=== PATIENT | male | born 1950 | race Caucasian/White ===

== ENCOUNTER 2016-09-22 00:08 | Day surgery (SDC) | payer MEDICARE, OTHER ==
[~2016-09-22] VITALS: Ht 185.4 cm; Wt 99.0 kg
[~2016-09-22 00:08] MED LIST: CARV3.122 PO; CHOL100043 PO; LACT1CAP65 PO; LENA2.5C PO; LISI-571 PO; LORA1TAB PO; METH5TAB3 PO; OMEP20CA11 PO; POLY17PO6 PO; SENN-133 PO; SEVE800T10 PO; TORS100T3 PO; VALA500T2 PO; VITA1TAB17 PO; ZLP10T PO; [UNRECOGNIZED DRUG - OTHER] PO
[2016-09-22] MEDS ORDERED: MAGNESIUM SULFATE IV ONE (00:09)
[2016-09-22] MEDS ORDERED: Propofol 10,000 mCg/mL 20 mL Inj ONE (00:09)
[2016-09-22] MEDS ORDERED: Lactated Ringer's 1,000 ML IV SCH ×2 (05:00→10:20)
[2016-09-22 09:30] VITALS: BP 126/70; PULSE 86; RESP 17; O2SAT 97
[2016-09-22 09:58] LABS: BASOPHILS % (AUTO) 0 % (0-3); Mean Corpuscular Volume 103.7 fL (81-100)
[2016-09-22] MEDS ORDERED: Heparin 1,000 Units/mL 2 mL Inj INJ SCH (10:00)
[2016-09-22] MEDS ORDERED: fentaNYL-PF 50 mCg/mL 2 mL Inj IVPUSH PRN (10:20)
[2016-09-22] MEDS ORDERED: HYDROmorphone 1 mg/mL Inj IVPUSH PRN (10:20)
[2016-09-22] MEDS ORDERED: Phenylephrine 10,000 mCg/mL Inj IVPUSH PRN (10:20)
[2016-09-22] MEDS ORDERED: Lactated Ringer's 500 ML IV PRN (10:20)
[2016-09-22] MEDS ORDERED: Ondansetron 2 mg/mL 2 mL Inj IVPUSH PRN (10:20)
[2016-09-22] MEDS ORDERED: Dexamethasone 4 mg/mL Inj IVPUSH PRN (10:20)
[2016-09-22] MEDS ORDERED: EPHEDrine Sulfate 50 mg/mL Inj IVPUSH PRN (10:20)
[2016-09-22] MEDS ORDERED: MetoCLOpramide 5 mg/mL 2 mL Inj IVPUSH PRN (10:20)
--- NOTE | 2016-09-22 10:20 | PCM.HPANE ---
Patient Data Surgeon Admitting Provider: Attending Provider:Brennan Calixto MD Primary Care Physician:Juliano Rolle MD Other Provider:Cindy Avilesingham Anesthesia Reason for Visit Multiple Myeloma Not Having Achieved Remission Ht/WT & BMI Height (Feet): 6 Height (Inches): 1.00 Weight (Kilograms): 99.000 Body Mass Index 28.93 Allergies Coded Allergies: esomeprazole mag (Verified Adverse Reaction, Intermediate, nausea/vomiting , 04/23/13) Past Anesthesia History Anesthesia History: Denies:: Abnormal Airway, Anesthesia Reactions, Difficult Intubation Diabetes History Hx Diabetes?: No MRSA MRSA: No Medications Hypertension Medication: Yes Home Meds Incl Beta Nerissa: Yes Reported Medications Lactobacillus Acidophilus (Probiotic)1 Each Capsule1 Each PO DAILY 08/15/16 Polyethylene Glycol 3350 (Miralax)17 Gm Powd.pack17 Gm PO DAILY 06/30/16 Sennosides (Senna)8.6 Mg Tablet8.6 Mg PO PRN For Constipation 06/30/16 Lisinopril 5 Mg Tablet5 Mg PO DAILY Ref 0 05/26/16 Torsemide 100 Mg Ovxyvi73-950 Mg PO DAILY Ref 0 04/21/16 Sevelamer HCl (Renagel)800 Mg Tablet1,600 Mg PO TIDWM 04/21/16 Lenalidomide (Revlimid)2.5 Mg Capsule2.5 Mg PO DAILY 09/15/16 ON HOLD 12/03/15 Carvedilol 3.125 Mg Tablet3.125 Mg PO BID Ref 0 08/31/15 Lorazepam 1 Mg Tablet1 Mg PO BID PRN For Insomnia Ref 0 08/27/15 [Granistreon] No Conflict Check1 Mg PO am NAUSEA 08/11/15 Zolpidem (Ambien)10 Mg Wlztnw77 Mg PO HS PRN For Insomnia Ref 0 08/11/15 Methadone 5 Mg Tablet2.5 Mg PO BID #30 TABLET Ref 0 08/11/15 Omeprazole 20 Mg Capsule.dr20 Mg PO BID Ref 0 08/11/15 Cholecalciferol (Vitamin D3) (Vitamin D)1,000 Unit Tablet1,000 Unit PO DAILY Ref 0 08/11/15 Vitamin B Complex 1 Each Tablet1 Each PO DAILY 10/16/14 Valacyclovir HCl (Valtrex)500 Mg Cietcs369 Mg PO DAILY TO TAKE X12 MOS [employer] TRANSPLANT 06/23/15 10/09/14 History History of ENT Problems?: No HEENT History: Positive for:: Hearing Problem Denies:: Abnormal Airway Cataracts Difficult Intubation Dysphagia Denture Type: None Teeth Condition: Within Normal Limits Hx of Heart Problems?: No Cardiovascular History: Denies:: Atrial Fibrillation Cardiac Surgery Chest Pain Congestive Heart Failure Edema Heart Murmur Hypertension Irregular Heartbeat Pacemaker Thrombophlebitis Valvular Heart Disease Hx of Respiratory Problem?: Yes Respiratory History: Denies:: Asthma COPD Chest Surgery Cough Dyspnea Emphysema Hemoptysis Pneumonia Tuberculosis Hx Neurologic Problems?: Yes Neurological History: Positive for:: Headaches Denies:: CVA Dementia Dizziness Parkinson's Disease Seizures Hx of GI Problems?: Yes Gastrointestinal History: Positive for:: Gastroesphageal Reflux Gastrointestinal Bleeding Heartburn Hiatal Hernia Denies:: Cirrhosis Diverticulitis Rectal Bleeding Hx of Problems?: Yes Genitourinary History: Positive for:: HX of Hemodialysis (T,R,S) Urinary Tract Infection Denies:: Kidney Stones Male Hx: Denies:: Prostate Problems Hx Musculoskeletal Problems?: Yes Musculoskeletal History: Positive for:: Back Injury Denies:: Joint Replacement Hx of Psycho/Social Problems?: No Psycho Social History: Denies:: Anxiety Hx Depression Hx Surgeries?: Yes ("Perineal nerve surgery" has numbness in Rt. foot. ) Hx Any Other Health Problems?: Yes Other History: Positive for:: Cancer (Multiple Myeloma (back)) Hospitalization Denies:: Endocrine Disease Thyroid Disease History Blood Transfusions: Positive for:: Accept Blood Products? Blood Transfusions Denies:: Blood Transfuse Reaction Hx Diabetes: No Hx Alcohol Use: NoHx Substance Use: No Smoking Status: Never Smoker Have You Smoked inLast 12 mo: No Stop/Bang Treated for Sleep Apnea?: Yes Do You Have a CPAP Machine?: Yes KAYE Risk Assessment: High Risk, =/>3 Yes Risk Assessment Category Category 1A: Patient has history of documented sleep apnea, and HAS NOT received any narcotic, sedative or anesthesia administration during this stay. Category 1B: Patient has history of documented sleep apnea, and HAS received any narcotic , sedative or anesthesia administration during this stay Category 2: Patient has SUSPECTED Obstructive Sleep Apnea, and HAS received any narcotic , sedative or anesthesia administration during this stay. Category 3: Patient has SUSPECTED Obstructive Sleep Apnea and HAS NOT received narcotic, sedative or anesthesia administration during this stay. Category 4: Outpatient in Procedural Areas with known sleep apnea or who screen positive for High Risk via the STOP/BANG questionnaire. Exam Exam Vital Signs Vital Signs Date Time Temp Pulse Resp B/P Pulse Ox O2 Delivery O2 Flow Rate FiO2 09/22/16 09:30 37.0 86 17 126/70 97 Room Air General Appearance: Oriented X3 HEENT/AIRWAY: MP 2 Lungs: Normal Air Movement Heart: Regular Rate/Rhythm Meds/Labs/Diagnostics Labs Test 09/22/16 09:47 Plan Impression Patient chart reviewed, patient interviewed and anesthestic plan with risks, benefits, and alternatives discussed, and informed consent obtained. ASA Physical Status: ASA2 Mod Systemic Disease Anesthetic Plan: GA, MAC Bene/Risks/Altern/Consents: Yes HP Complete Prior to Induction: Yes Branden Maldonado MD Sep 22, 2016 10:20
[2016-09-22 10:39] LABS: EOSINOPHILS % (AUTO) 0 % (0-5); MONOCYTES % (AUTO) 3 % (4-12); NEUTROPHILS % (AUTO) 7 % (40-74); Platelet Count 16 bil/L (150-400)
[2016-09-22 11:00] VITALS: BP 122/78; PULSE 85; RESP 17; O2SAT 97
[2016-09-22] MEDS ORDERED: NEPHVIT PO (11:00)
[2016-09-27] MEDS ORDERED: LORA0.5T PO (15:33)
--- NOTE | 2016-10-02 17:03 | CCS NOTE ---
[facility] [address] [address] MEDICAL ONCOLOGY OFFICE NOTE PATIENT: KRISTIN BELLAMY : 1950 MR#: [id number] DATE: 09/22/2016 JOB ID: [id number] DATE: 09/22/2016 PROCEDURE: Bone marrow aspiration and biopsy under conscious sedation in outpatient surgery. INDICATIONS: History of multiple myeloma status post autologous stem-cell transplant, now with severe thrombocytopenia. Rule out development of marrow aplasia or secondary malignancy. PROCEDURE IN DETAIL: After informed consent was obtained, the patient was placed under conscious sedation and the right posterior iliac crest was prepped with Chlorhexidine. Following this, an instillation of 7 cc of 2% lidocaine was used for local anesthesia. Following this, a 3 mm nikia was made in the skin with a #11 blade. A 14-gauge [place] sternal needle was used to obtain a 5 cc aspirate for Plascencia Giemsa stain, flow cytometry, FISH, and cytogenetics. Following this, an 11-gauge Jamshidi needle was used to obtain a 5-7 mm core biopsy. COMPLICATIONS: None; followup will be in 2-5 days.
[2016-10-05] MEDS ORDERED: GRAN1TAB2 PO (12:03)
== END 2016-09-22 23:59 | disposition home or self-care (01) ==
LOC: SOUO 00:08
DX: C90.00 Multiple myeloma not having achieved remission (principal); Z94.84 Stem cells transplant status; D69.6 Thrombocytopenia, unspecified
CPT/HCPCS: 36415; 85025; J1644; J3475

== ENCOUNTER 2016-09-24 07:27 | Day surgery (SDC) | payer MEDICARE, OTHER ==
[~2016-09-24] VITALS: Ht 185.4 cm; Wt 100.9 kg
[~2016-09-24 07:27] MED LIST changes: -LENA2.5C PO; +NEPHVIT PO; -POLY17PO6 PO; -SENN-133 PO; -VITA1TAB17 PO
[2016-09-24 10:00] VITALS: BP 138/86; PULSE 92; RESP 18; O2SAT 98
[2016-09-24 10:48] LABS: BASOPHILS % (AUTO) 0 % (0-3); EOSINOPHILS % (AUTO) 0.7 % (0-5); MONOCYTES % (AUTO) 5.6 % (4-12); Mean Corpuscular Hemoglobin 32.8 pg (27.0-35.0); Mean Corpuscular Volume 102.8 fL (81-100); NEUTROPHILS % (AUTO) 2.4 % (40-74)
[2016-09-24 10:51] LABS: Platelet Count 6 bil/L (150-400)
[2016-09-24] MEDS ORDERED: 0.9% Sodium Chloride 250 ML IV SCH (11:10)
[2016-09-24 11:49] VITALS: BP 127/86; PULSE 89; RESP 18
[2016-09-24] MEDS ORDERED: HepLOK Flush 100 unit/mL 5 mL Inj ONE (12:25)
[2016-09-24 12:49] VITALS: BP 140/87; PULSE 90; RESP 18
--- NOTE | 2016-09-24 13:00 | NUR ---
PLTS=6 (<20); 1 pk plts infused as indicated/ordered pt tolerated well; vss escorted on/off unit with family to follow-up with onc center
[2016-09-27] MEDS ORDERED: LORA0.5T PO (15:33)
[2016-10-05] MEDS ORDERED: GRAN1TAB2 PO (12:03)
== END 2016-09-24 23:59 | disposition home or self-care (01) ==
LOC: MOCO 07:27
DX: C90.00 Multiple myeloma not having achieved remission (principal)
CPT/HCPCS: 36415; 36430; 85025; J1642; J7050; P9034

== ENCOUNTER 2017-02-01 16:30 | Emergency (ER) | payer MEDICARE, OTHER ==
[~2017-02-01] VITALS: Ht 185.4 cm; Wt 90.0 kg
[~2017-02-01 16:30] MED LIST changes: +GRAN1TAB2 PO; +LORA0.5T PO; -LORA1TAB PO; -[UNRECOGNIZED DRUG - OTHER] PO
[2017-02-01 16:41] VITALS: BP 146/82; RESP 16; O2SAT 96
--- NOTE | 2017-02-01 16:50 | ED.REPORT ---
HPI-General Illness Date of Service Feb 01, 2017 ED Provider: Himanshu Tyler MD Patient is a 66 year old male with a history of acute myeloid leukemia who presents to the ED stating that it feels as though there is something in the back of his throat since this morning. The patient states that it feels like a large "fleshy thing" in the back of his throat that makes it difficulty to breath and causes him to gag when he gulps. He reports that it does not feel like mucous, it feels like "a balloon that is filled with something". Patient denies throat pain, cough, fever, or abdominal pain. Patient's last chemo treatment was a month ago. Nursing Notes Stated Complaint: SOMETHING IN THROAT, HARD TO BREATH Chief Complaint: ENT & Mouth Nursing Notes Reviewed: Yes Allergies: Coded Allergies: esomeprazole mag (Verified Adverse Reaction, Intermediate, nausea/vomiting , 04/23/13) Scheduled Carvedilol (Carvedilol) 3.125 Mg Tablet 3.125 MG PO BID Cholecalciferol (Vitamin D3) (Vitamin D) 1,000 Unit Tablet 1,000 UNIT PO DAILY Granisetron (Granisetron) 1 Mg Tablet 1 MG PO BID Lactobacillus Acidophilus (Probiotic) 1 Each Capsule 1 EACH PO DAILY Lisinopril (Lisinopril) 5 Mg Tablet 5 MG PO DAILY Methadone (Methadone) 5 Mg Tablet 2.5 MG PO BID Omeprazole (Omeprazole) 20 Mg Capsule.dr 20 MG PO BID Sevelamer HCl (Renagel) 800 Mg Tablet 1,600 MG PO TIDWM Torsemide (Torsemide) 100 Mg Tablet 50-100 MG PO DAILY Valacyclovir HCl (Valtrex) 500 Mg Tablet 250 MG PO DAILY TO TAKE X12 MOS [employer] TRANSPLANT 06/23/15 Vitamin B Complex/Vit C (Azalea-Tita Tablet) 1 Tab Tab 1 TAB PO DAILY Scheduled PRN Lorazepam (Lorazepam) 0.5 Mg Tablet 1 MG PO BID PRN PRN For Anxiety Zolpidem (Ambien) 10 Mg Tablet 10 MG PO HS PRN PRN For Insomnia General Time Seen by MD: 16:49 Chief Complaint Other (uvula swelling) Hx Obtained From: Patient Arrived By: Walk-in Sudden in Onset?: Yes Onset Occurred: 1 - 4 hours ago Symptom Duration: Since onset Severity: Current: No pain currently Recent Healthcare: Recent doctor visit Similar Sx Previous: No Past Medical History Past Medical History Notes: Electromechanical Technologist: Dr. Gage Urologist: Dr. Calixto Past Medical History 1. Stage III, high-risk refractory multiple myeloma, s/p VRD-JUVENCIO cycle 1 on 07/24/13, with goal towards autologous stem cell transplantation after two cycles of induction therapy. a. Pancytopenia related to chemo and requiring blood transfusions b. 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 Chronic back pain. 3. Right peroneal nerve injury. 4. GERD. 5. Insomnia. 6. Kidney failure Past Surgical History 1. Left AV fistula placement with a right radiocephalic fistula placed on June 27, 2013. 2. Right IJ tunneled hemodialysis catheter placement on May 21, 2013. 3. Right knee surgery for peroneal nerve release. 4. Cholecystectomy. 5. Chronic steroid injections. 6. Right peroneal nerve decompressive surgery x3. Family History Noncontributory Smoking History Never Smoker Social History Alcohol Use: Denies alcohol use Drug Use: Denies drug use Other Social History: Local resident Ambulatory Status Independent Review of Systems Full Review of Systems Constitutional: Denies: Chills, Fever Ears / Nose / Throat: Reports: Throat swelling, Denies: Throat pain Respiratory: Reports: Shortness of breath, Denies: Non-productive cough GI: Denies: Abdominal pain Skin: Denies Itching, Denies Rash Complete sys rev & neg: except as marked. Physical Exam Vital Signs Vital Signs Date Time Temp Pulse Resp B/P Pulse Ox O2 Delivery O2 Flow Rate FiO2 02/01/17 16:41 36.7 95 16 146/82 96 Room Air Initial VS: Reviewed General/Constitutional: Awake, Alert Head / Eyes: Atraumatic, Normocephalic, PERRL, EOMI ENT: Airway patent, Mucous membranes moist, Pharynx NL about the lateral buccal mucousa there is an erythematous inflammed patch that is 2cm x 2cm no swelling no asymmetry of the oralpharynx tonsills normal uvula is inflammed there is scabbing and erythema about the tip of the uvula hanging down and touching the base of the tongue Respiratory / Chest: Atraumatic, Breath sounds NL, Breath sounds = bilat, No respiratory distress Cardiovascular: Heart rate NL, Regular rhythm, Heart sounds NL, No gallop, No murmurs, No rubs Skin: Warm, Dry Neurologic: Oriented X3, Speech NL Psychiatric: Affect NL, Mood NL Re-Eval/Medical Decision Med Decision/Clinical Course Patient is a 66 year old male with a history of acute myeloid leukemia who presents to the ED stating that it feels as though there is something in the back of his throat since this morning. The patient states that it feels like a large "fleshy thing" in the back of his throat that makes it difficulty to breath and causes him to gag when he gulps. He reports that it does not feel like mucous, it feels like "a balloon that is filled with something". Patient denies throat pain, cough, fever, or abdominal pain. Patient's last chemo treatment was a month ago. Here in the emergency department the patient is afebrile with stable vital signs and examination as above. Soft tissue Neck IMPRESSION: 1. No opaque foreign bodies in the airway. 2. Small calcific densities anterior to the coracoid process, uncertain clinical significance. Examination of the oropharynx reveals multiple regions of mucosal irritation/ scabbing. His uvula is markedly inflamed and hanging down/touching the base of his tongue. I see no evidence of peritonsillar abscess, his airway is widely patent, he has no stridor, there is no swelling of his neck, there is no evidence of Macho angina, there is no swelling of his tongue and I see no concern for retropharyngeal abscess. The cause of his complaint seems to be related to his uvula and his uvula appears inflamed likely related to his recent chemotherapy. He is already on steroids and I do not know that increasing his steroids will have much effect on this. I advised him to use Magic mouthwash for symptom control and popsicles. He will follow up closely with his oncologist and primary care physician and return for worsening symptoms. Prior to discharge follow-up and return precautions were reviewed in detail with the patient who verbalized understanding and agreement with the plan. The patient was discharged in stable condition. Time of Eval: 17:20 Re-Evaluation/Progress Note: Discussed plan for discharge. Patient understands and agrees to plan. All questions were addressed. Counseled Regarding: Diagnosis, Lab results, Need for follow-up, When/why to return to ED Discharge & Departure Primary Impression: Swollen uvula Additional Impressions: Oral mucosal lesion Patient on antineoplastic chemotherapy regimen Disposition: Home Discharge Condition All VS Reviewed: Yes Condition: Critical Additional Instructions: Thank you for seeking care at the emergency room. It is difficult for us to make definitive diagnoses in the ED but we believe that your uvula swelling is the cause of your discomfort. Our primary goal today in the Emergency Department was to evaluate you for any life-threatening conditions. Your evaluation was reassuring. You should follow-up with your primary doctor in the next week. You can try sleeping at an angle so your uvula doesn't hang down in the back of your throat when you sleep. You can also try drinking cold fluids or eating foods like popsicles. You should return to the Emergency Department immediately if you develop fevers , vomiting, cough, shortness of breath, or any other concerning signs or symptoms. Thank you for letting us partake in your care today. Referrals: Juliano Rolle MD (PCP) Maximiliano Attestation Portions of this note were transcribed by Drea Robles. I, Dr. Tyler personally performed the history, physical exam and medical decision-making; I reviewed and confirmed the accuracy of the information in the transcribed note. Signed by: Maximiliano Mora, 02/01/17 copies to: Juliano Rolle MD, Beck O MD Feb 01, 2017 16:49 Lanette Robles Feb 01, 2017 17:17
--- NOTE | 2017-02-01 17:31 | DRSVH ---
PROCEDURE: X-RAY NECK SOFT TISSUE ([id number]) INDICATIONS: sensation of FB TECHNIQUE: 2 views of the neck were acquired. COMPARISON: None. FINDINGS: Airway: The airway appears patent. Soft tissues: Prevertebral soft tissues are normal in thickness. The epiglottis and aryepiglottic f olds appear normal. No soft tissue gas. No opaque foreign bodies in the central airway. Small calci fic densities seen on the lateral view just below the skull base and anterior to the coracoid process of mandible, uncertain clinical significance. Bones: No suspicious bony lesions. Visualized cervical spine is normally aligned. Degenerative gonzalo nges in cervical spine. There is a Port-A-Cath on the left with the tip in the area of SVC. IMPRESSION: 1. No opaque foreign bodies in the airway. 2. Small calcific densities anterior to the coracoid process on seeing the lateral view only, uncerta in clinical significance. If clinical symptoms persist or clinical suspicion for pathology is high, advanced imaging such as CT is suggested for further evaluation. Dictated by: Hilda Nava M.D. on 02/01/2017 at 17:26 Transcribed by: A[place] on 02/01/2017 at 17:31 Approved by: Hilda Nava M.D. on 02/01/2017 at 21:11
[2017-02-04] MEDS ORDERED: DOCU-41 (11:33)
[2017-02-04] MEDS ORDERED: DOCU-41 PO (11:33)
[2017-02-04] MEDS ORDERED: PRE20 PO (12:45)
[2017-02-04] MEDS ORDERED: POSA100T PO (12:45)
[2017-02-04] MEDS ORDERED: SULF-239 PO (12:45)
== END 2017-02-01 17:30 | disposition home or self-care (01) ==
LOC: SED 16:30
DX: K13.79 Other lesions of oral mucosa (principal); K21.9 Gastro-esophageal reflux disease without esophagitis; I12.0 Hypertensive chronic kidney disease with stage 5 chronic kidney disease or end stage renal disease; N18.6 End stage renal disease; Z90.49 Acquired absence of other specified parts of digestive tract; Z85.6 Personal history of leukemia; Z51.11 Encounter for antineoplastic chemotherapy; Z88.8 Allergy status to other drugs, medicaments and biological substances

== ENCOUNTER → 2017-02-04 | Day surgery (SDC) | payer MEDICARE, OTHER ==
[~2017-02-04] VITALS: Ht 185.4 cm; Wt 90.0 kg
[~2017-02-04] MED LIST changes: +0.9% Sodium Chloride 250 ML ONE; +DOCU-41; +DOCU-41 PO; +POSA100T PO; +PRE20 PO; +SULF-239 PO
[2017-02-04 11:39] VITALS: BP 110/75; PULSE 88; RESP 22; O2SAT 96
[2017-02-04 12:51] LABS: BASOPHILS % (AUTO) 0 % (0-3); EOSINOPHILS % (AUTO) 0 % (0-5); Mean Corpuscular Hemoglobin 27.9 pg (27.0-35.0); Mean Corpuscular Volume 84.2 fL (81-100)
[2017-02-04 13:00] LABS: Platelet Count 18 bil/L (150-400)
[2017-02-04 13:30] VITALS: BP 92/58; PULSE 80; RESP 20
[2017-02-04 13:45] VITALS: BP 90/56; PULSE 84; RESP 20
[2017-02-04 14:45] VITALS: BP 114/79; PULSE 92; RESP 16
[2017-02-04 15:00] VITALS: BP 98/63; PULSE 88; RESP 16
[2017-02-04 17:18] VITALS: BP 111/75; PULSE 92; RESP 16
== END | disposition home or self-care (01) ==
LOC: MOCO 08:00
DX: C90.00 Multiple myeloma not having achieved remission (principal)